=== PATIENT | female | born 1970 | race Caucasian/White ===

== ENCOUNTER → 2018-06-14 | Outpatient (CLI) | payer BC | LOC: RAD 08:55 | DX: M25.562 Pain in left knee (principal) ==

== ENCOUNTER → 2018-10-02 | Outpatient (CLI) | payer BC | LOC: RAD 11:40 | DX: R10.31 Right lower quadrant pain (principal); N92.6 Irregular menstruation, unspecified ==

== ENCOUNTER → 2018-10-03 | Outpatient (CLI) | payer BC | LOC: LAB 07:00 | DX: N92.6 Irregular menstruation, unspecified (principal) ==